=== PATIENT | male | born 1965 | race Caucasian/White ===

== ENCOUNTER 2018-12-28 12:21 | Day surgery (SDC) | payer OTHER ==
[~2018-12-28] VITALS: Ht 185.4 cm; Wt 90.3 kg
[~2018-12-28 12:21] MED LIST: Carbidopa-Levo1 EACH PO; Ibuprofen Ib200 MG PO; OMEPRAZOLE MAGN20 MG PO; Pseudoephedrine30 MG PO
== END 2018-12-28 14:10 | disposition home or self-care (01) ==
LOC: ORSCSDS 12:21
PROVIDERS: Internal Medicine Gastroenterology
PROC: 0DB58ZX Excision of Esophagus, Via Natural or Artificial Opening Endoscopic, Diagnostic (ICD-10-PCS; principal; 2018-12-28 13:45)
PROC: 0DBM8ZX Excision of Descending Colon, Via Natural or Artificial Opening Endoscopic, Diagnostic (ICD-10-PCS; principal; 2018-12-28 13:45)
PROC: 0DB68ZX Excision of Stomach, Via Natural or Artificial Opening Endoscopic, Diagnostic (ICD-10-PCS; principal; 2018-12-28 13:45)
DX: K21.9 Gastro-esophageal reflux disease without esophagitis (principal); K29.70 Gastritis, unspecified, without bleeding; K44.9 Diaphragmatic hernia without obstruction or gangrene; K29.80 Duodenitis without bleeding; Z12.11 Encounter for screening for malignant neoplasm of colon; Z86.010 Personal history of colon polyps; D12.4 Benign neoplasm of descending colon; K57.30 Diverticulosis of large intestine without perforation or abscess without bleeding; K64.8 Other hemorrhoids
CPT/HCPCS: 88305; 88342; J7120

== ENCOUNTER → 2020-09-10 | Outpatient (CLI) | payer OTHER | END | disposition home or self-care (01) | LOC: PLD 08:17 → LAB SHORT 08:17 | DX: D48.5 Neoplasm of uncertain behavior of skin (principal) | CPT/HCPCS: 88305 ==

== ENCOUNTER → 2021-08-14 | Outpatient (CLI) | payer OTHER | END | disposition home or self-care (01) | LOC: LAB 07:35 → LAB SHORT 07:35 | DX: L30.8 Other specified dermatitis (principal); K64.4 Residual hemorrhoidal skin tags | CPT/HCPCS: 88305; 88312 ==

== ENCOUNTER 2021-09-11 08:25 | Day surgery (SDC) | payer OTHER ==
[~2021-09-11] VITALS: Ht 185.4 cm; Wt 94.4 kg
[~2021-09-11 08:25] MED LIST changes: +Chantix1 MG PO; +IBUP200 PO; +METAMUCIL PO; +OMEP20ER PO; +Sinemet 25-1001 EACH PO
--- NOTE | 2021-09-11 09:10 | NUR ---
Ambulatory in Day Surgery History, Chart, Medications and Allergies reviewed before start of procedure.Lungs clear T/O to Auscultation. Patient confirms NPO status and agrees with scheduled surgery. Pre-Op teaching done. Pt verbalizes understanding. Patient States Post-Procedure ride home has been arranged.
--- NOTE | 2021-09-11 10:49 | NUR ---
09/11/21 1049 Samira Quijano NO PREOP ANTIBIOTICS ORDERED PER .
--- NOTE | 2021-09-11 12:24 | NUR ---
Patient up to Ambulate independently. Gait steady. Discharge instructions reviewed with patient. Patient verbalizes understanding. Copy given to patient to take home. Discharged via wheelchair to private car for ride home WITH SIGNIFICANT OTHER. GLASSES ON PT. PRESCRIPTION FOR PAIN MEDICATION IN DISCHARGE FOLDER WITH . MADISYN REMAINS CDI.
== END 2021-09-11 12:25 | disposition home or self-care (01) ==
LOC: ORSCMMR 08:25 → ORD 09:30 → ORSCMMR 12:25
PROVIDERS: Surgery
PROC: 0DBQXZZ Excision of Anus, External Approach (ICD-10-PCS; principal; 2021-09-11 09:30)
PROC: 0DJD8ZZ Inspection of Lower Intestinal Tract, Via Natural or Artificial Opening Endoscopic (ICD-10-PCS; principal; 2021-09-11 09:30)
DX: K64.4 Residual hemorrhoidal skin tags (principal); K62.0 Anal polyp; L29.0 Pruritus ani; K21.9 Gastro-esophageal reflux disease without esophagitis; N18.9 Chronic kidney disease, unspecified; Z79.899 Other long term (current) drug therapy; F17.220 Nicotine dependence, chewing tobacco, uncomplicated
CPT/HCPCS: 88305; 88312; J0171; J1100; J2405; J2704; J3010; J7120